=== PATIENT | male | born 1945 | race Caucasian/White ===

== ENCOUNTER → 2017-10-12 | Outpatient (CLI) | payer MEDICARE, BC | END | disposition home or self-care (01) | LOC: CVU 12:29 → EDSTATUS 13:00 | PROVIDERS: ATTEND Internal Medicine Cardiovascular Disease | DX: I35.1 Nonrheumatic aortic (valve) insufficiency (principal); I10 Essential (primary) hypertension; E78.5 Hyperlipidemia, unspecified; I42.9 Cardiomyopathy, unspecified; I25.2 Old myocardial infarction; Z95.1 Presence of aortocoronary bypass graft | CPT/HCPCS: 93306 ==

== ENCOUNTER 2017-11-30 08:24 | Observation (INO) | payer MEDICARE, BC ==
[2017-11-29 14:18] VITALS: BP 118/79
[2017-11-29 14:33] LABS: BASOPHILS # (AUTO) 0.07 x10^3/uL (0-0.1); BASOPHILS % (AUTO) 1 % (0-1); EOSINOPHILS # (AUTO) 0.11 x10^3/uL (0-0.4); EOSINOPHILS % (AUTO) 1 % (1-7); LYMPHOCYTES # (AUTO) 2.86 x10^3/uL (1-3.4); LYMPHOCYTES % (AUTO) 27 % (22-44); MD NO; MEAN CORPUSCULAR HEMOGLOBIN 29.1 pg (27.5-34.5); MEAN CORPUSCULAR HGB CONC 32.6 g/dL (33.2-36.2); MEAN CORPUSCULAR VOLUME 89.3 fL (81-97); MEAN PLATELET VOLUME 8.7 fL (7.4-10.4); MONOCYTES # (AUTO) 0.97 x10^3/uL (0.2-0.8); MONOCYTES % (AUTO) 9 % (2-9); NEUTROPHILS # (AUTO) 6.71 x10^3/uL (1.8-6.8); NEUTROPHILS % (AUTO) 63 % (42-75); PLATELET COUNT 258 x10^3/uL (130-400); RED BLOOD COUNT 5.27 x10^6/uL (4.38-5.82); RED CELL DISTRIBUTION WIDTH 18.5 % (9.4-14.8)
[2017-11-29 14:37] LABS: INTERNATIONAL NORMALIZED RATIO 1.06 (0.93-1.1); PROTHROMBIN TIME 10.9 Seconds (9.6-11.5)
[2017-11-29 14:45] LABS: ALBUMIN 3.7 g/dL (3.4-5.0); ANION GAP 7 mmol/L (5-15); CALCIUM 9.4 mg/dL (8.5-10.1); CHLORIDE 107 mmol/L (98-107)
[2017-11-29 14:49] LABS: ALANINE AMINOTRANSFERASE 29 U/L (12-78); ALKALINE PHOSPHATASE 68 U/L (45-117); BILIRUBIN,TOTAL 0.8 mg/dL (0.2-1.0); CHOL/HDL RATIO 2.6; CHOLESTEROL, TOTAL 138 mg/dL (140-239); CREATININE 1.38 mg/dL (0.7-1.3); HDL CHOL % 38 % (26-37); HDL CHOLESTEROL (DIRECT) 53 mg/dL (40-60); LDL CHOLESTEROL,CALCULATED 65 mg/dL (54-169); LDL/HDL RATIO 1.2 (0.5-3.0); TOTAL PROTEIN 7.9 g/dL (6.4-8.2); TRIGLYCERIDES 101 mg/dL (50-200); VLDL CHOLESTEROL 20 mg/dL (0-25)
[~2017-11-30] VITALS: Ht 180.3 cm; Wt 94.5 kg
[~2017-11-30 08:24] MED LIST: AMAN100T PO; ASCO500T7 PO; ASPI-496 PO; ATOR40TA PO; AZAT50TA9 PO; BISO5TAB2 PO; CEFD300C37 PO; CHOL10003 PO; CITA20TA5 PO; CLOP75TA PO; FISH OIL PO; LISI2.5T PO; MAGN400T7 PO; MULT-516 PO; PANT40TA5 PO; SPIR25TA3 PO; TIZA4TAB PO
[2017-11-30] MEDS: SODIUM CHLORIDE 0.9% 1,000 ML IV SCH ×2 (08:48→16:48)
[2017-11-30] MEDS ORDERED: LIDOCAINE/PF 1%, 30ML ONE (10:16)
[2017-11-30] MEDS ORDERED: CEFAZOLIN PMX 1GM/50ML 50 ML ONE (10:16)
[2017-11-30] MEDS ORDERED: CEFAZOLIN 1,000 MG ONE (10:16)
[2017-11-30] MEDS ORDERED: FENTANYL PF 250 MCG/5ML ONE (10:31)
[2017-11-30] MEDS ORDERED: PROPOFOL 10 MG/ML, 50ML ONE (10:40)
[2017-11-30] MEDS ORDERED: OXYcodone 5 MG/5 ML ORAL.SOL UDC PO PRN (12:00)
[2017-11-30] MEDS ORDERED: ZOLPIDEM 5MG TABLET PO PRN (12:00)
[2017-11-30] MEDS ORDERED: ONDANSETRON ODT 8 MG PO PRN (12:00)
[2017-11-30] MEDS ORDERED: MORPHINE SULFATE 4 MG/ML, 1ML IVPush PRN (12:00)
[2017-11-30] MEDS ORDERED: ACETAMINOPHEN 325 MG TABLET PO PRN ×2 (12:00)
[2017-11-30] MEDS ORDERED: PROMETHAZINE 25 MG/ML, 1ML IV PRN (12:00)
[2017-11-30] MEDS ORDERED: MIDAZOLAM 1 MG/ML, 2ML IV PRN (12:00)
[2017-11-30] MEDS ORDERED: FENTANYL PF 100 MCG/2ML IV PRN (12:00)
[2017-11-30 16:15] VITALS: BP 125/84
[2017-11-30] MEDS: AMANTADINE 100 MG CAPSULE PO SCH ×2 (17:59→20:32)
[2017-11-30] MEDS: CEFAZOLIN PMX 1GM/50ML 50 ML IVPB SCH (18:48)
[2017-11-30 19:25] VITALS: BP 124/82
[2017-11-30] MEDS: SODIUM CHLORIDE FLUSH 10ML SYR IVF SCH (20:31)
[2017-11-30] MEDS: TIZANIDINE 4MG TABLET PO SCH (20:32)
[2017-11-30] MEDS: AZATHIOPRINE 50 MG TABLET PO SCH (20:32)
[2017-11-30] MEDS: HYDROcodone/APAP 5/325 TABLET PO PRN (20:53)
[2017-11-30] MEDS ORDERED: ATORVASTATIN 40 MG TABLET PO SCH (21:00)
[2017-12-01] MEDS: SODIUM CHLORIDE 0.9% 1,000 ML IV SCH ×2 (00:48→08:46)
[2017-12-01 00:51] VITALS: BP 109/74
[2017-12-01] MEDS: CEFAZOLIN PMX 1GM/50ML 50 ML IVPB SCH (02:27)
[2017-12-01] MEDS: HYDROcodone/APAP 5/325 TABLET PO PRN (02:33)
[2017-12-01] MEDS: AMANTADINE 100 MG CAPSULE PO SCH (08:48)
[2017-12-01] MEDS: AZATHIOPRINE 50 MG TABLET PO SCH (08:49)
[2017-12-01] MEDS: TIZANIDINE 4MG TABLET PO SCH (08:49)
[2017-12-01] MEDS: SODIUM CHLORIDE FLUSH 10ML SYR IVF SCH (08:54)
[2017-12-01] MEDS ORDERED: ASCORBIC ACID 500 MG TABLET PO SCH (09:00)
[2017-12-01] MEDS ORDERED: MULTIVITAMIN 1 TABLET PO SCH (09:00)
[2017-12-01] MEDS ORDERED: CHOLECALCIFEROL 1,000 UNIT TABLET PO SCH (09:00)
[2017-12-01] MEDS ORDERED: BISOPROLOL FUMARATE HOMEMEDPO SCH (09:00)
[2017-12-01] MEDS ORDERED: OMEGA-3/FISH OIL CAPSULE PO SCH (09:00)
[2017-12-01] MEDS ORDERED: SPIRONOLACTONE 25 MG TABLET PO SCH (09:00)
[2017-12-01] MEDS ORDERED: CLOPIDOGREL 75 MG TABLET PO SCH (09:00)
[2017-12-01] MEDS ORDERED: PANTOPROZOLE 40MG TABLET PO SCH (09:00)
[2017-12-01] MEDS ORDERED: LISINOPRIL 5 MG TABLET PO SCH (09:00)
[2017-12-01] MEDS ORDERED: MAGNESIUM OXIDE 400 MG TABLET PO SCH (09:00)
[2017-12-01] MEDS ORDERED: CITALOPRAM 20 MG TABLET PO SCH (09:00)
[2017-12-01] MEDS ORDERED: ASPIRIN 81 MG TABLET EC PO SCH (09:00)
[2017-12-01 10:11] VITALS: BP 114/79
== END 2017-12-01 12:00 | disposition home or self-care (01) ==
LOC: CACL 08:24 → EDSTATUS 10:00 → 5SO 11:36 → CACL 11:40 → 5SO 15:59 → DCLOUNGE 12-01 11:32
PROVIDERS: ADMIT Internal Medicine Cardiovascular Disease; ATTEND Internal Medicine Cardiovascular Disease
DX: I25.5 Ischemic cardiomyopathy (principal); I49.01 Ventricular fibrillation; I10 Essential (primary) hypertension; I25.10 Atherosclerotic heart disease of native coronary artery without angina pectoris; E78.5 Hyperlipidemia, unspecified; E78.2 Mixed hyperlipidemia; I35.0 Nonrheumatic aortic (valve) stenosis
CPT/HCPCS: 33249; 36415; 71045; 71046; 80053; 80061; 85025; 85610; 85730; 93641; 96365; 96375; C1721; C1779; C1892; C1895; G0378; J0690; J2704; J3010; J3490; J7500

== ENCOUNTER → 2018-02-02 | Outpatient (CLI) | payer MEDICARE, BC ==
[~2018-02-02] MED LIST changes: +ATROPINE SYRINGE 0.1 MG/ML, 10ML ONE; -CITA20TA5 PO; +CITA20TA6 PO; +DOBUTAMINE/D5W PMX 250 ML IV ONE; +DOBUTAMINE/D5W PMX 250 ML ONE; +ESMOLOL 100 MG/10 ML ONE; +NITROGLYCERIN 0.4 MG BOTTLE (25 TABS) SL ONE; +PLEASE ENTER HEIGHT AND WEIGHT MC SCH; +SODIUM CHLORIDE 0.9% 500 ML IVF SCH; -SPIR25TA3 PO; +SPIR25TA5 PO
== END | disposition home or self-care (01) ==
LOC: CARD 10:15
PROVIDERS: ATTEND Internal Medicine Cardiovascular Disease
DX: I35.0 Nonrheumatic aortic (valve) stenosis (principal); I10 Essential (primary) hypertension; E78.5 Hyperlipidemia, unspecified; I25.2 Old myocardial infarction; R94.39 Abnormal result of other cardiovascular function study; Z87.891 Personal history of nicotine dependence
CPT/HCPCS: 93017; 93350; J0461

== ENCOUNTER → 2018-02-16 | Outpatient (CLI) | payer MEDICARE, BC ==
[~2018-02-16] MED LIST changes: -ATROPINE SYRINGE 0.1 MG/ML, 10ML ONE; -DOBUTAMINE/D5W PMX 250 ML IV ONE; -DOBUTAMINE/D5W PMX 250 ML ONE; -ESMOLOL 100 MG/10 ML ONE; -NITROGLYCERIN 0.4 MG BOTTLE (25 TABS) SL ONE; +OMNIPAQUE 350 MG/ML, 150 ML BOTTLE ONE; -PLEASE ENTER HEIGHT AND WEIGHT MC SCH; -SODIUM CHLORIDE 0.9% 500 ML IVF SCH
[2018-02-16 13:02] LABS: CREATININE 1.22 mg/dL (0.7-1.3)
== END | disposition home or self-care (01) ==
LOC: CVU 11:06
PROVIDERS: ATTEND Internal Medicine Cardiovascular Disease
DX: I65.23 Occlusion and stenosis of bilateral carotid arteries (principal); I11.0 Hypertensive heart disease with heart failure; I50.9 Heart failure, unspecified; I35.8 Other nonrheumatic aortic valve disorders; I25.10 Atherosclerotic heart disease of native coronary artery without angina pectoris; J98.11 Atelectasis; J84.10 Pulmonary fibrosis, unspecified; N28.1 Cyst of kidney, acquired; E78.5 Hyperlipidemia, unspecified; Z95.1 Presence of aortocoronary bypass graft; Z87.891 Personal history of nicotine dependence
CPT/HCPCS: 36415; 71275; 74174; 82565; 93880; Q9967

== ENCOUNTER 2018-03-03 10:08 | Day surgery (SDC) | payer MEDICARE, BC ==
[2018-03-01 11:49] VITALS: BP 120/87
[2018-03-01 12:48] LABS: ANION GAP 6 mmol/L (5-15); CALCIUM 9.1 mg/dL (8.5-10.1); CHLORIDE 109 mmol/L (98-107); CREATININE 1.28 mg/dL (0.7-1.3)
[2018-03-01 13:09] LABS: BASOPHILS # (AUTO) 0.05 x10^3/uL (0-0.1); BASOPHILS % (AUTO) 1 % (0-1); EOSINOPHILS # (AUTO) 0.12 x10^3/uL (0-0.4); EOSINOPHILS % (AUTO) 1 % (1-7); LYMPHOCYTES # (AUTO) 3.23 x10^3/uL (1-3.4); LYMPHOCYTES % (AUTO) 30 % (22-44); MD NO; MEAN CORPUSCULAR HEMOGLOBIN 31.7 pg (27.5-34.5); MEAN CORPUSCULAR HGB CONC 33.4 g/dL (33.2-36.2); MEAN CORPUSCULAR VOLUME 95.2 fL (81-97); MEAN PLATELET VOLUME 9.2 fL (7.4-10.4); MONOCYTES # (AUTO) 1.16 x10^3/uL (0.2-0.8); MONOCYTES % (AUTO) 11 % (2-9); NEUTROPHILS % (AUTO) 58 % (42-75); PLATELET COUNT 207 x10^3/uL (130-400); RED BLOOD COUNT 5.08 x10^6/uL (4.38-5.82); RED CELL DISTRIBUTION WIDTH 17.1 % (9.4-14.8)
[~2018-03-03] VITALS: Ht 180.3 cm; Wt 91.8 kg
[~2018-03-03 10:08] MED LIST changes: +CITA20TA9 PO; +CLON0.5T11 PO; +LISI5TAB PO; -OMNIPAQUE 350 MG/ML, 150 ML BOTTLE ONE; +PANT20TA3 PO; +SPIR25TA PO; +TIZA4CAP2 PO; +[UNRECOGNIZED DRUG - OTHER]
[2018-03-03] MEDS ORDERED: SODIUM CHLORIDE 0.9% 1,000 ML IV ONE (10:18)
[2018-03-03] MEDS ORDERED: AZAT50TA9 PO (10:51)
[2018-03-03] MEDS ORDERED: DOCUSATE RC (10:57)
[2018-03-03] MEDS ORDERED: FENTANYL PF 100 MCG/2ML ONE (11:18)
[2018-03-03] MEDS ORDERED: TICAGRELOR 90 MG TABLET ONE (11:18)
[2018-03-03] MEDS ORDERED: MIDAZOLAM 1 MG/ML, 5ML ONE (11:18)
[2018-03-03] MEDS ORDERED: BIVALIRUDIN 250 MG ONE (11:19)
[2018-03-03] MEDS ORDERED: LIDOCAINE-MPF 2% ,5ML ONE (11:19)
[2018-03-03] MEDS ORDERED: VERAPAMIL 2.5 MG/ML, 2ML ONE (11:19)
[2018-03-03] MEDS ORDERED: HEPARIN 1,000 UNITS/ML, 10ML ONE (11:19)
[2018-03-03] MEDS ORDERED: NITROGLYCERIN 5 MG/ML, 10ML ONE (11:19)
[2018-03-03] MEDS ORDERED: SODIUM CHLORIDE 0.9% 1,000 ML IV SCH (14:01)
== END 2018-03-03 17:18 | disposition home or self-care (01) ==
LOC: CACL 10:08
PROVIDERS: ATTEND Internal Medicine Cardiovascular Disease
DX: I25.82 Chronic total occlusion of coronary artery (principal); I10 Essential (primary) hypertension; Z95.1 Presence of aortocoronary bypass graft; Z95.810 Presence of automatic (implantable) cardiac defibrillator; Z72.89 Other problems related to lifestyle; Z87.891 Personal history of nicotine dependence
CPT/HCPCS: 36415; 80048; 85025; 93455; 99156; 99157; C1769; C1894; J1644; J2250; J3010; J7030; Q9967; J0583; J3490

== ENCOUNTER 2018-03-15 06:21 | Inpatient (IN) | payer MEDICARE, BC ==
[~2018-03-15] VITALS: Ht 180.3 cm; Wt 94.5 kg
[~2018-03-15 06:21] MED LIST changes: +DOCUSATE RC
[2018-03-15] MEDS ORDERED: SODIUM CHLORIDE 0.9% 1,000 ML IV ONE (06:31)
[2018-03-15 06:35] VITALS: BP 111/83
[2018-03-15] MEDS ORDERED: ONDANSETRON 2MG/ML, 2ML IVPush PRN (07:00)
[2018-03-15] MEDS ORDERED: CHLORHEXIDINE 15 ML UDC MM PRN (07:00)
[2018-03-15] MEDS ORDERED: FENTANYL PF 250 MCG/5ML ONE (07:13)
[2018-03-15] MEDS ORDERED: PROTAMINE SULFATE 10 MG/ML, 5ML ONE (07:17)
[2018-03-15] MEDS ORDERED: HEPARIN 1,000 UNITS/ML, 10ML ONE (07:17)
[2018-03-15] MEDS ORDERED: CEFAZOLIN 1,000 MG ONE ×2 (07:17→14:51)
[2018-03-15 07:26] LABS: BASOPHILS # (AUTO) 0.05 x10^3/uL (0-0.1); BASOPHILS % (AUTO) 1 % (0-1); EOSINOPHILS # (AUTO) 0.24 x10^3/uL (0-0.4); EOSINOPHILS % (AUTO) 2 % (1-7); LYMPHOCYTES % (AUTO) 33 % (22-44); MD NO; MEAN CORPUSCULAR HGB CONC 33.6 g/dL (33.2-36.2); MEAN CORPUSCULAR VOLUME 95.4 fL (81-97); MEAN PLATELET VOLUME 9.1 fL (7.4-10.4); MONOCYTES # (AUTO) 1.23 x10^3/uL (0.2-0.8); MONOCYTES % (AUTO) 12 % (2-9); NEUTROPHILS # (AUTO) 5.28 x10^3/uL (1.8-6.8); NEUTROPHILS % (AUTO) 52 % (42-75); PLATELET COUNT 193 x10^3/uL (130-400); RED BLOOD COUNT 4.86 x10^6/uL (4.38-5.82); RED CELL DISTRIBUTION WIDTH 16.5 % (9.4-14.8)
[2018-03-15 07:28] LABS: ALANINE AMINOTRANSFERASE 40 U/L (12-78); ALBUMIN 3.4 g/dL (3.4-5.0); ANION GAP 9 mmol/L (5-15); CALCIUM 8.9 mg/dL (8.5-10.1); CHLORIDE 106 mmol/L (98-107); CREATININE 1.38 mg/dL (0.7-1.3)
[2018-03-15 07:32] LABS: ALKALINE PHOSPHATASE 66 U/L (45-117); BILIRUBIN,TOTAL 0.7 mg/dL (0.2-1.0); TOTAL PROTEIN 7.3 g/dL (6.4-8.2)
[2018-03-15 08:04] LABS: INTERNATIONAL NORMALIZED RATIO 1.04 (0.93-1.1); PROTHROMBIN TIME 10.8 Seconds (9.6-11.5)
[2018-03-15] MEDS ORDERED: PANTOPROZOLE 40MG TABLET PO PRN (10:00)
[2018-03-15] MEDS ORDERED: [UNRECOGNIZED DRUG - OTHER] RC PRN (10:00)
[2018-03-15] MEDS ORDERED: ONDANSETRON 2MG/ML, 2ML ONE (14:51)
[2018-03-15] MEDS ORDERED: VASOPRESSIN 20 UNIT/ML, 1ML ONE (14:51)
[2018-03-15] MEDS ORDERED: PROPOFOL 10 MG/ML, 20ML ONE (14:51)
[2018-03-15] MEDS ORDERED: ROCURONIUM 10MG/ML,5ML ONE (14:51)
[2018-03-15 17:25] VITALS: BP 126/79
[2018-03-15 19:37] VITALS: BP 119/76
[2018-03-15] MEDS ORDERED: ATORVASTATIN 40 MG TABLET PO SCH (21:00)
[2018-03-15] MEDS: AZATHIOPRINE 50 MG TABLET PO SCH (21:30)
[2018-03-16 00:51] VITALS: BP 119/74
[2018-03-16 04:48] LABS: BASOPHILS # (AUTO) 0.03 x10^3/uL (0-0.1); BASOPHILS % (AUTO) 0 % (0-1); EOSINOPHILS # (AUTO) 0.11 x10^3/uL (0-0.4); EOSINOPHILS % (AUTO) 1 % (1-7); LYMPHOCYTES # (AUTO) 2.84 x10^3/uL (1-3.4); LYMPHOCYTES % (AUTO) 23 % (22-44); MD NO; MEAN CORPUSCULAR HEMOGLOBIN 32.7 pg (27.5-34.5); MEAN CORPUSCULAR HGB CONC 34.1 g/dL (33.2-36.2); MEAN CORPUSCULAR VOLUME 95.8 fL (81-97); MEAN PLATELET VOLUME 9.1 fL (7.4-10.4); MONOCYTES # (AUTO) 1.71 x10^3/uL (0.2-0.8); MONOCYTES % (AUTO) 14 % (2-9); NEUTROPHILS # (AUTO) 7.83 x10^3/uL (1.8-6.8); NEUTROPHILS % (AUTO) 63 % (42-75); PLATELET COUNT 147 x10^3/uL (130-400); RED BLOOD COUNT 4.71 x10^6/uL (4.38-5.82); RED CELL DISTRIBUTION WIDTH 16.1 % (9.4-14.8)
[2018-03-16 04:55] LABS: ANION GAP 9 mmol/L (5-15); CALCIUM 8.5 mg/dL (8.5-10.1); CHLORIDE 108 mmol/L (98-107)
[2018-03-16 04:57] LABS: CREATININE 1.23 mg/dL (0.7-1.3)
[2018-03-16] MEDS ORDERED: ASPIRIN 81 MG TABLET EC PO SCH (06:00)
[2018-03-16 07:18] VITALS: BP 124/73
[2018-03-16] MEDS ORDERED: CLOPIDOGREL 75 MG TABLET PO SCH (09:00)
[2018-03-16] MEDS ORDERED: CITALOPRAM 20 MG TABLET PO SCH (09:00)
[2018-03-16] MEDS ORDERED: LISINOPRIL 5 MG TABLET PO SCH (09:00)
[2018-03-16] MEDS ORDERED: CHOLECALCIFEROL 5,000u TAB PO SCH (09:00)
[2018-03-16] MEDS ORDERED: MAGNESIUM OXIDE 400 MG TABLET PO SCH (09:00)
[2018-03-16] MEDS ORDERED: BISOPROLOL FUMARATE 10 MG PO SCH (09:00)
[2018-03-16] MEDS ORDERED: AMANTADINE 100 MG CAPSULE PO SCH (09:00)
[2018-03-16] MEDS ORDERED: SPIRONOLACTONE 25 MG TABLET PO SCH (09:00)
[2018-03-16] MEDS: AZATHIOPRINE 50 MG TABLET PO SCH (09:40)
[2018-03-16 12:06] VITALS: BP 115/69
== END 2018-03-16 17:07 | disposition home or self-care (01) | DRG 266 ==
LOC: ORIP 06:21 → CCU 09:22 → 5SO 17:19
PROVIDERS: ADMIT Internal Medicine Cardiovascular Disease; ATTEND Internal Medicine Cardiovascular Disease
PROC: B246ZZ4 Ultrasonography of Right and Left Heart, Transesophageal (ICD-10-PCS; 2018-03-15)
PROC: 02RF38Z Replacement of Aortic Valve with Zooplastic Tissue, Percutaneous Approach (ICD-10-PCS; principal; 2018-03-15 08:00)
DX: I35.0 Nonrheumatic aortic (valve) stenosis (principal); Z00.6 Encounter for examination for normal comparison and control in clinical research program; N17.0 Acute kidney failure with tubular necrosis; I50.42 Chronic combined systolic (congestive) and diastolic (congestive) heart failure; G35 Multiple sclerosis; E78.5 Hyperlipidemia, unspecified; I11.0 Hypertensive heart disease with heart failure; I25.10 Atherosclerotic heart disease of native coronary artery without angina pectoris; I25.5 Ischemic cardiomyopathy; Z95.1 Presence of aortocoronary bypass graft; M19.90 Unspecified osteoarthritis, unspecified site; Z79.899 Other long term (current) drug therapy
CPT/HCPCS: 33361; 36415; 80048; 80053; 83880; 85025; 85347; 85610; 85730; 86850; 86900; 86923; 87081; 93306; 93312; 93321; 93325; 93355; C1760; C1769; C1894; G0378; J0690; J1644; J2405; J2704; J2720; J3010; J7500; J7030; Q9967

== ENCOUNTER → 2018-04-08 | Outpatient (CLI) | payer MEDICARE, BC ==
[~2018-04-08] MED LIST changes: +ACETAMINOPHEN 325 MG TABLET PO PRN; +ASPIRIN 81 MG TABLET EC PO SCH; +CLOPIDOGREL 300 MG TABLET PO ONE; +CLOPIDOGREL 75 MG TABLET PO SCH; +HYDROcodone/APAP 5/325 TABLET PO PRN; +LABETALOL 20 MG/4 ML IVPush PRN; +PLEASE ENTER HEIGHT AND WEIGHT MC SCH; +hydrALAzine 20 MG/ML, 1ML IVPush PRN
== END | disposition home or self-care (01) ==
LOC: CVU 10:57
PROVIDERS: ATTEND Internal Medicine Cardiovascular Disease
DX: I34.0 Nonrheumatic mitral (valve) insufficiency (principal); I35.0 Nonrheumatic aortic (valve) stenosis; I10 Essential (primary) hypertension; E78.5 Hyperlipidemia, unspecified; Z95.0 Presence of cardiac pacemaker; Z95.1 Presence of aortocoronary bypass graft
CPT/HCPCS: 93306

== ENCOUNTER → 2018-06-17 | Outpatient (CLI) | payer MEDICARE, BC ==
[~2018-06-17] MED LIST changes: -ACETAMINOPHEN 325 MG TABLET PO PRN; -ASPIRIN 81 MG TABLET EC PO SCH; -CLOPIDOGREL 300 MG TABLET PO ONE; -CLOPIDOGREL 75 MG TABLET PO SCH; -HYDROcodone/APAP 5/325 TABLET PO PRN; -LABETALOL 20 MG/4 ML IVPush PRN; -PLEASE ENTER HEIGHT AND WEIGHT MC SCH; -hydrALAzine 20 MG/ML, 1ML IVPush PRN
== END | disposition home or self-care (01) ==
LOC: RAD 14:43
PROVIDERS: ATTEND Internal Medicine Cardiovascular Disease
DX: I50.43 Acute on chronic combined systolic (congestive) and diastolic (congestive) heart failure (principal); I50.89 Other heart failure; Z95.2 Presence of prosthetic heart valve
CPT/HCPCS: 36415; 71046; 83880

== ENCOUNTER → 2018-08-18 | Outpatient (CLI) | payer MEDICARE, BC ==
[2018-08-18 12:15] LABS: ALANINE AMINOTRANSFERASE 29 U/L (12-78); ALBUMIN 3.7 g/dL (3.4-5.0); ANION GAP 5 mmol/L (5-15); CALCIUM 8.8 mg/dL (8.5-10.1); CHLORIDE 110 mmol/L (98-107); CHOLESTEROL, TOTAL 147 mg/dL (140-239); CREATININE 1.45 mg/dL (0.7-1.3); TRIGLYCERIDES 120 mg/dL (50-200); VLDL CHOLESTEROL 24 mg/dL (0-25)
[2018-08-18 12:17] LABS: ALKALINE PHOSPHATASE 77 U/L (45-117); BILIRUBIN,TOTAL 0.6 mg/dL (0.2-1.0); CHOL/HDL RATIO 3.2; HDL CHOL % 31 % (26-37); HDL CHOLESTEROL (DIRECT) 46 mg/dL (40-60); LDL CHOLESTEROL,CALCULATED 77 mg/dL (54-169); LDL/HDL RATIO 1.7 (0.5-3.0); TOTAL PROTEIN 7.5 g/dL (6.4-8.2)
== END | disposition home or self-care (01) ==
LOC: LAB 11:42
PROVIDERS: ATTEND Internal Medicine Cardiovascular Disease
DX: E78.2 Mixed hyperlipidemia (principal)
CPT/HCPCS: 36415; 80053; 80061

== ENCOUNTER → 2018-09-22 | Outpatient (CLI) | payer MEDICARE, BC | END | disposition home or self-care (01) | LOC: CFH 13:55 | PROVIDERS: ATTEND Nurse Practitioner Family | DX: I11.9 Hypertensive heart disease without heart failure (principal); E78.5 Hyperlipidemia, unspecified; Z87.891 Personal history of nicotine dependence; Z95.1 Presence of aortocoronary bypass graft; Z95.0 Presence of cardiac pacemaker | CPT/HCPCS: 93306 ==

== ENCOUNTER → 2019-12-12 | Outpatient (CLI) | payer MEDICARE, BC ==
[~2019-12-12] MED LIST changes: -BISO5TAB2 PO; +BISO5TAB8 PO; +CLON-364 PO; -CLON0.5T11 PO; -MAGN400T7 PO; +MAGN400T9 PO; -TIZA4TAB PO; +TIZA4TAB2 PO
[2019-12-12 12:59] LABS: ALANINE AMINOTRANSFERASE 30 U/L (12-78); ALBUMIN 3.4 g/dL (3.4-5.0); ANION GAP 6 mmol/L (5-15); CALCIUM 8.6 mg/dL (8.5-10.1); CHLORIDE 108 mmol/L (98-107); CREATININE 1.36 mg/dL (0.7-1.3)
[2019-12-12 13:01] LABS: ALKALINE PHOSPHATASE 55 U/L (45-117); BILIRUBIN,TOTAL 0.6 mg/dL (0.2-1.0); CHOL/HDL RATIO 3.5; CHOLESTEROL, TOTAL 157 mg/dL (140-239); HDL CHOL % 29 % (26-37); HDL CHOLESTEROL (DIRECT) 45 mg/dL (40-60); LDL CHOLESTEROL,CALCULATED 86 mg/dL (54-169); LDL/HDL RATIO 1.9 (0.5-3.0); TRIGLYCERIDES 130 mg/dL (50-200); VLDL CHOLESTEROL 26 mg/dL (0-25)
== END | disposition home or self-care (01) ==
LOC: LAB 12:35
PROVIDERS: ATTEND Internal Medicine Cardiovascular Disease
DX: I42.9 Cardiomyopathy, unspecified (principal); E78.2 Mixed hyperlipidemia; I35.0 Nonrheumatic aortic (valve) stenosis
CPT/HCPCS: 36415; 80053; 80061